=== PATIENT | male | born 1995 | race Caucasian/White ===

== ENCOUNTER 2018-01-06 05:32 | Emergency (ER) | payer BC ==
[2018-01-06 05:50] VITALS: O2SAT 99
[2018-01-06] MEDS ORDERED: Sodium Chloride 0.9% 1,000 ML IV STA ×2 (06:08→07:55)
--- NOTE | 2018-01-06 06:13 | ED PDOC ---
HPI: Abdomen History Per: Patient <Kwesi Sloan - Last Filed: 01/06/18 07:09> <Lefty Scherer - Last Filed: 01/06/18 19:32> Chief Complaint (Nursing): Abdominal Pain Additional Complaint(s): 22 y/o male with hx of ADHD presents to ED with complaints of Nausea and 5-6 episodes of vomiting digested food since 2am. Pt admits to consuming large amounts of hard liquor on Sunday night but states he woke up feeling fine and was able to eat food. He also endorses abdominal pain starting prior to episodes of vomiting that he localizes to RUQ and epigastric regions and 1-2 episodes of loose stools. Denies hemetemesis, coffee ground emesis, fever, sick contacts, recent travel, dysuria. Girlfriend at bedside. Denies illicit drug use. (Kwesi Sloan) Supervising Attending Note - Supervising Attending Note The Documented history was done by the: Physician Cart Attendant The documented physical exam was done by the: Physician Cart Attendant - Attestation: I have personally seen and examined this patient.: Yes I have fully participated in the care of the patient.: Yes I have reviewed all pertinent clinical information: Yes <Lefty Scherer - Last Filed: 01/06/18 19:32> Past Medical History Reviewed: Historical Data, Nursing Documentation - Medical History Other PMH: ADHD - Surgical History Surgical History: No Surg Hx - Family History Family History: States: No Known Family Hx - Social History Current smoker - smoking cessation education provided: Yes (VAPE) <Kwesi Sloan - Last Filed: 01/06/18 07:09> <Lefty Scherer - Last Filed: 01/06/18 19:32> Vital Signs: Last Vital Signs Temp 98.8 F 01/06/18 10:15 Pulse 70 01/06/18 10:15 Resp 16 01/06/18 10:15 BP 109/70 01/06/18 10:15 Pulse Ox 99 01/06/18 10:57 - Home Medications Home Medications: Ambulatory Orders Medication Instructions Recorded Ondansetron [Zofran Odt] 4 mg PO Q8H PRN #15 odt 01/06/18 - Allergies Allergies/Adverse Reactions: Allergies Allergy/AdvReac Type Severity Reaction Status Date / Time No Known Allergies Allergy Verified 01/06/18 05:50 Review of Systems Constitutional: Negative for: Fever, Chills Cardiovascular: Negative for: Chest Pain Respiratory: Negative for: Cough, Shortness of Breath Gastrointestinal: Positive for: Nausea, Vomiting, Abdominal Pain, Diarrhea. Negative for: Melena, Hematochezia Genitourinary Male: Negative for: Dysuria Neurological: Positive for: Weakness, Dizziness <Kwesi Sloan - Last Filed: 01/06/18 07:09> Physical Exam - Physical Exam Appears: Positive for: In Acute Distress (actively vomiting) ENT: Positive for: Other (dry mucuous membranes) Cardiovascular/Chest: Positive for: Regular Rate, Rhythm. Negative for: Murmur Respiratory: Positive for: Normal Breath Sounds. Negative for: Accessory Muscle Use Gastrointestinal/Abdominal: Positive for: Soft, Tenderness (RUQ and Epigastric) . Negative for: Distended, Guarding Neurologic/Psych: Positive for: Alert, Oriented <Kwesi Sloan - Last Filed: 01/06/18 07:09> - Laboratory Results Result Diagrams: 01/06/18 06:34 01/06/18 06:34 - ECG O2 Sat by Pulse Oximetry: 99 <Kwesi Sloan - Last Filed: 01/06/18 07:09> - Laboratory Results Result Diagrams: 01/06/18 06:34 01/06/18 06:34 <Lefty Scherer - Last Filed: 01/06/18 19:32> Medical Decision Making <Kwesi Sloan - Last Filed: 01/06/18 07:09> <Lefty Scherer - Last Filed: 01/06/18 19:32> Medical Decision Makin22 y/o male presenting with N/V and abdominal pain x4 hrs in setting of recent heavy alcohol intoxication. Hemodynamically stable. Plan: IV fluids 1 L bolus, IV Zofran, Pepcid, IV, Bentyl, CBC, CMP, Lipase, Utox , U/A. (Kwesi Sloan) Disposition - Disposition Disposition: Transfer of Care (Dr. Tena) Disposition Time: 07:10 <Kwesi Sloan - Last Filed: 01/06/18 07:09> <Lefty Scherer - Last Filed: 01/06/18 19:32> - Clinical Impression Clinical Impression: Vomiting in adult patient - Disposition Condition: IMPROVED Additional Instructions: FOLLOW-UP WITH PMD WITHIN 2 DAYS FOR REEVALUATION. Prescriptions: Ondansetron [Zofran Odt] 4 mg PO Q8H PRN #15 odt PRN Reason: Nausea/Vomiting Instructions: Nausea and Vomiting, Adult Forms: [facility] (Bhutanese)
[2018-01-06] MEDS ORDERED: Famotidine 20mg/50ml 20 MG/50 ML BAG IVPB ONE ×2 (06:14→06:45)
[2018-01-06 06:36] LABS: HEMOGLOBIN 17.7 g/dL (12.0-18.0); MEAN CELL VOLUME 94.2 fl (80.0-94.0); MEAN CORPUSCULAR HEMOGLOBIN 32.4 pg (27.0-31.0); MEAN CORPUSCULAR HGB CONC 34.4 g/dL (33.0-37.0); RBC 5.46 Mil/uL (4.40-5.90); RED CELL DISTRIBUTION WIDTH 13.4 % (11.5-14.5); WHITE BLOOD COUNT 12.3 K/uL (4.8-10.8)
[2018-01-06 06:59] LABS: ALB/GLOB RATIO 1.6 (1.0-2.1); ALBUMIN 4.7 g/dL (3.5-5.0); ALT/SGPT 42 U/L (21-72); AST/SGOT 41 U/L (17-59); BLOOD UREA NITROGEN 26 mg/dl (9-20); CALCIUM 9.9 mg/dL (8.4-10.2); GFR AFRICAN-AMERICAN > 60; GFR NON-AFRICAN AMERICAN > 60; LIPASE 59 U/L (23-300)
[2018-01-06 07:54] LABS: URINE BILIRUBIN NEGATIVE (NEGATIVE); URINE BLOOD NEGATIVE (NEGATIVE); URINE CLARITY SLIGHTY-CLOUDY (Clear); URINE COLOR YELLOW (YELLOW); URINE GLUCOSE (UA) NEG (Normal); URINE LEUKOCYTE ESTERASE NEG Leu/uL (Negative); URINE PROTEIN NEGATIVE (NEGATIVE); URINE UROBILINOGEN 0.2-1.0 mg/dL (0.2-1.0)
--- NOTE | 2018-01-06 08:02 | ED PDOC ---
- Laboratory Results Result Diagrams: 01/06/18 06:34 01/06/18 06:34 - ECG O2 Sat by Pulse Oximetry: 99 (RA) Pulse Ox Interpretation: Normal Medical Decision Making Medical Decision Making: Patient signed out to provider at 7 am pending reeval and ED disposition. 0800 Reeval- Patient is still very nauseous and abdomen remains non tender. Repeat temperature 98.7. 1 additional liter of NS and 10 mg of reglan ordered. 1037 Patient states that he does not want to wait for the official reading of his CT scan. BRANDEN MCKEON, thank you for letting us take care of you today. Your provider was Akilah Reese MD and you were treated for VOMITING,HEADACHES. The emergency medical care you received today was directed at your acute symptoms. If you were prescribed any medication, please fill it and take as directed. It may take several days for your symptoms to resolve. Return to the Emergency Department if your symptoms worsen, do not improve, or if you have any other problems. Please contact your doctor or call one of the physicians/clinics you have been referred to that are listed on the Patient Visit Information form that is included in your discharge packet. Bring any paperwork you were given at discharge with you along with any medications you are taking to your follow up visit. Our treatment cannot replace ongoing medical care by a primary care provider outside of the emergency department. Thank you for allowing the [facility] team to be part of your care today. If you had an X-Ray or CT scan: A Radiologist will review the ED reading if any change in treatment is needed we will contact you. Documented by Ava Wu acting as a scribe for Akilah Reese MD. All medical record entries made by the Scribe were at my direction and personally dictated by me. I have reviewed the chart and agree that the record accurately reflects my personal performance of the history, physical exam, medical decision making, and the department course for this patient. I have also personally directed, reviewed, and agree with the discharge instructions and disposition. Disposition Counseled Patient/Family Regarding: Studies Performed - Clinical Impression Clinical Impression: Vomiting in adult patient - POA Present On Arrival: None - Disposition Disposition: Routine/Home Disposition Time: 10:37 Condition: IMPROVED Additional Instructions: FOLLOW-UP WITH PMD WITHIN 2 DAYS FOR REEVALUATION. Prescriptions: Ondansetron [Zofran Odt] 4 mg PO Q8H PRN #15 odt PRN Reason: Nausea/Vomiting Instructions: Nausea and Vomiting, Adult Forms: [facility] ([place]ese)
[2018-01-06 08:15] LABS: BARBITURATES, UR NEGATIVE (NEGATIVE); BENZODIAZEPINES, UR NEGATIVE (NEGATIVE); OPIATES, UR NEGATIVE (NEGATIVE); PHENCYCLIDINE, UR NEGATIVE (NEGATIVE)
[2018-01-06 10:17] VITALS: BP 109/70; PULSE 70; RESP 16; TEMP 98.8
--- NOTE | 2018-01-06 10:41 | US ---
HISTORY: Epigastric pain COMPARISON: None. TECHNIQUE: Sonographic evaluation of the right upper quadrant of the abdomen. FINDINGS: LIVER: Measures cm in length. Normal echogenicity of the liver parenchyma. No mass. No intrahepatic bile duct dilatation. GALLBLADDER: Unremarkable. No gallstones. COMMON BILE DUCT: Measures mm. No stones. No dilatation. PANCREAS: Unremarkable as visualized. No mass. No ductal dilatation. RIGHT KIDNEY: Measures cm in length. Normal echogenicity. No calculus, mass, or hydronephrosis. AORTA: No aneurysmal dilatation. IVC: Unremarkable. OTHER FINDINGS: None . IMPRESSION: Normal exam.
== END 2018-01-06 10:40 | disposition home or self-care (01) ==
LOC: H.ER 05:32
DX: R11.10 Vomiting, unspecified (principal); F90.9 Attention-deficit hyperactivity disorder, unspecified type
CPT/HCPCS: 76705; 80053; 81003; 83690; 85027; 96361; 96365; 96375; 99283; G0480; J2405; J2765; J7030